=== PATIENT | female | born 1960 | race Caucasian/White ===

== ENCOUNTER 2022-12-13 04:18 | Day surgery (SDC) | payer BC, OTHER ==
[2022-12-12 08:55] VITALS: BMI 21.4
[2022-12-13 08:17] VITALS: TEMP 97.9
[2022-12-13 08:44] VITALS: RESP 20
[2022-12-13 09:04] VITALS: BP 117/68; PULSE 85
== END 2022-12-13 09:04 | disposition home or self-care (01) ==
LOC: JASU-ENDO 04:18
PROVIDERS: ATTEND Internal Medicine Gastroenterology
PROC: 0DJD8ZZ Inspection of Lower Intestinal Tract, Via Natural or Artificial Opening Endoscopic (ICD-10-PCS; principal; 2022-12-13 08:00)
DX: Z12.11 Encounter for screening for malignant neoplasm of colon (principal); Z86.010 Personal history of colon polyps; Z80.0 Family history of malignant neoplasm of digestive organs; I10 Essential (primary) hypertension